=== PATIENT | female | born 1955 | race Caucasian/White ===

== ENCOUNTER → 2017-01-12 | Day surgery (SDC) | payer OTHER ==
[~2017-01-12] MED LIST: COREG3.125 MG PO; MULTI VITAMIN1 EACH PO; NEXIUM 24HR20 M1 PO; NEXIUM PO; NEXIUM20 MG PO; ZOCOR PO; ZOLOFT PO; ZOLOFT100 MG PO
--- NOTE | ~2017-01-12 | OR ---
Unit #: [id number] #: [id number] Patient: ALESHA STUART [id number] [address] [address] [id number] O MR#: [id number] NAME: ALESHA STUART ROOM: Date of Procedure: 01/12/2017 Admission Date: 01/12/2017 Surgeon: Adrian Parsons M.D. : 1955 Attending Physician: Adrian Parsnos M.D. Primary Care Physician: Tameka Sandoval M.D. OPERATIVE REPORT PREOPERATIVE DIAGNOSES Dysphagia and dyspepsia. PROCEDURES PERFORMED 1. Upper gastrointestinal endoscopy and biopsy. 2. Upper gastrointestinal endoscopy and polypectomy. 3. Upper gastrointestinal endoscopy and dilation with a Loaiza dilator. POSTOPERATIVE DIAGNOSES 1. The patient had distal esophageal mucosal ring. The latter was dilated with a 60-Indonesian Loaiza dilator. 2. Small hiatus hernia. 3. Multiple polyps in the gastric fundus. The largest of these was about 1.5 cm and was removed using snare cautery polypectomy. It was retrieved and sent for histology. 4. The patient had mild prepyloric antral gastritis. The biopsies obtained from the antrum for CLOtest. 5. Rest of the examination up to third part of duodenum was normal. RECOMMENDATIONS The patient will be started on Nexium 40 mg p.o. daily. She will be followed up in the office in 10 to 12 weeks' time. SEDATION USED MAC. DESCRIPTION OF PROCEDURE Following detailed explanation of potential risks and complications of an upper endoscopy, namely perforation, bleeding, and complications related to sedation, the patient was brought to GI lab and laid in the left lateral decubitus position. Lubricated tip of the Olympus video upper endoscope was passed through the bite block into the proximal esophagus under direct vision. The entire esophageal mucosa was examined. The patient was noted to have distal esophageal mucosal ring along with a small hiatus hernia. The scope was then advanced into the gastric cavity and the latter was insufflated. Mucosa of the fundus, body, and antrum examined and multiple polyps were seen in the gastric fundus, the largest of which was about 1.5 cm in size. There were erythematous streaks and erosions in the prepyloric antral area indicating antral gastritis. Pylorus was intubated with visualization of the normal duodenal bulb and second and third part of the duodenum. Upon withdrawal and retroflexion, incisura, cardia, and greater curve examined and a biopsy obtained from Unit #: [id number] #: [id number] Patient: ALESHA STUART the antrum for CLOtest. One of the largest fundic polyps were then removed using snare cautery polypectomy. It was retrieved and sent for histology. The scope was then withdrawn in the distal esophagus. Entire esophageal mucosa was examined all the way up to pharynx. No additional findings noted. A 60-Ind[place]ian Loaiza dilator was introduced through the oral cavity. Relook endoscopy showed minimal bleeding with effective dilation was achieved. The scope was then withdrawn all the way up to pharynx. No additional findings noted. The patient tolerated the procedure without any postprocedure complications. Dictated by... Niki Reddy/jose francisco TD: 01/12/2017 23:46 JOB #: [id number] OPERATIVE REPORT Page 1 of 1 X Adrian Parsons MD X PROCEDURE OPERATIVE NOTE
== END | disposition home or self-care (01) ==
LOC: COPS 08:57
DX: K31.7 Polyp of stomach and duodenum (principal); K22.2 Esophageal obstruction; K44.9 Diaphragmatic hernia without obstruction or gangrene; K29.70 Gastritis, unspecified, without bleeding; E66.9 Obesity, unspecified; K21.9 Gastro-esophageal reflux disease without esophagitis; Z79.899 Other long term (current) drug therapy; Z98.890 Other specified postprocedural states
CPT/HCPCS: 87077; 88305; 88312; J2250